=== PATIENT | female | born 1945 | race Caucasian/White ===

== ENCOUNTER 2021-03-23 07:40 | Outpatient (CLI) | payer MEDICARE, OTHER, SELFPAY ==
--- NOTE | 2021-03-23 07:45 | MM_ITS ---
WS: [id number] Bilateral screening digital mammogram, 03/23/2021 Clinical Data: SCREENING Comparison: 08/21/2019, 07/21/2018, 06/17/2017. Findings: The breast parenchymal pattern shows fat replacement. No spiculated masses or clustered calcification s are seen. There are no secondary signs of carcinoma. MM/[id number] Impression: 1. Negative bilateral mammogram unchanged. 2. Recommend annual screening mammograms. BIRADS: 1-Negative FOLLOW UP: 1 Year Follow-up The CAD weight checker was used.
== END 2021-03-23 07:41 | disposition home or self-care (01) ==
LOC: RADSHAW 07:43
PROVIDERS: PCP Family Medicine; Visit Provider Family Medicine
DX: Z12.31 Encounter for screening mammogram for malignant neoplasm of breast (principal)
CPT/HCPCS: 77067

== ENCOUNTER → 2022-03-22 08:03 | Outpatient (BNVA) | payer MEDICARE, OTHER, SELFPAY | PROVIDERS: PCP Family Medicine; Visit Provider Family Medicine | DX: E78.5 Hyperlipidemia, unspecified (principal) | CPT/HCPCS: 80053; 80061 ==

== ENCOUNTER 2022-05-02 14:27 | Outpatient (CLI) | payer MEDICARE, OTHER, SELFPAY ==
--- NOTE | 2022-05-02 14:41 | MM_ITS ---
WS: [id number] BILATERAL 3D TOMOSYNTHESIS DIGITAL SCREENING MAMMOGRAPHY WITH CAD CLINICAL INFORMATION: SCREENING HISTORY: Screening mammogram. No current complaints. COMPARISON: March 23, 2021 TECHNIQUE: Bilateral CC and MLO views. FINDINGS: Scattered fibroglandular densities bilaterally. A few tiny punctate calcifications. A few tiny calcif ications subareolar RIGHT breast. Slightly spiculated asymmetric density near the 12:00 position LEFT breast at the areola measuring 6 mm is progressed compared to the prior studies. This is best seen o n the MLO view. Recommend spot compression views and ultrasound for further evaluation. RIGHT breast is unchanged and unremarkable. MM/[place] [id number] IMPRESSION: BI-RADS: 0-Incomplete: Need additional imaging evaluation FOLLOW UP: Need Additional Imaging Recommend LEFT breast diagnostic mammography and ultrasound in further evaluat ion.
== END 2022-05-02 14:28 | disposition home or self-care (01) ==
PROVIDERS: PCP Family Medicine; Visit Provider Family Medicine
DX: Z12.31 Encounter for screening mammogram for malignant neoplasm of breast (principal)
CPT/HCPCS: 77063; 77067

== ENCOUNTER 2022-06-14 08:01 | Outpatient (CLI) | payer MEDICARE, OTHER, SELFPAY ==
--- NOTE | 2022-06-14 08:13 | MM_ITS ---
WS: [id number] LEFT 3D TOMOSYNTHESIS DIGITAL MAMMOGRAPHY WITH CAD CLINICAL INFORMATION: ABNORMAL MAMMO COMPARISON: May 02, 2022 TECHNIQUE: 3 views of the left breast were obtained. FINDINGS: Scattered fibroglandular densities of the left breast. Asymmetric density near the 12:00 position LEF T breast at the areola measuring 6 mm. This mostly compresses out on the spot compression views. Ultr asound described below. ULTRASOUND BREAST LEFT TECHNIQUE: Ultrasound left breast focused area of concern. CLINICAL INFORMATION: ABNORMAL MAMMO COMPARISON: None. FINDINGS: Ultrasound LEFT 11 to 1:00 position. Normal underlying parenchymal tissue. No suspicious cystic or so lid lesions. No lesions to target for biopsy. Recommend return to screening mammography. MM/[id number] IMPRESSION: BI-RADS: 2-Benign FOLLOW UP: 1 Year Follow-up Recommend return to annual screening mammography.
== END 2022-06-14 08:02 | disposition home or self-care (01) ==
LOC: RAD 08:01
PROVIDERS: PCP Family Medicine; Visit Provider Family Medicine
DX: R92.8 Other abnormal and inconclusive findings on diagnostic imaging of breast (principal)
CPT/HCPCS: 76642; 77061

== ENCOUNTER → 2023-03-11 15:12 | Outpatient (BNVA) | payer MEDICARE, OTHER, SELFPAY | PROVIDERS: PCP Family Medicine; Visit Provider Dermatology | DX: L21.8 Other seborrheic dermatitis (principal) | CPT/HCPCS: 99214 ==

== ENCOUNTER → 2023-04-01 09:19 | Outpatient (BNVA) | payer MEDICARE, OTHER, SELFPAY | PROVIDERS: PCP Clinical Nurse Specialist Adult Health; Visit Provider Clinical Nurse Specialist Adult Health | DX: Z00.00 Encounter for general adult medical examination without abnormal findings (principal) | CPT/HCPCS: 80053; 80061; 82306; 83735; 85025 ==

== ENCOUNTER 2023-06-24 08:06 | Outpatient (CLI) | payer MEDICARE, OTHER, SELFPAY ==
--- NOTE | 2023-06-24 08:14 | MM_ITS ---
WS: [id number] SCREENING DIGITAL TOMOSYNTHESIS MAMMOGRAM WITH CAD HISTORY: screening mammogram COMPARISON: 06/14/2022 and 03/23/2021 Bilateral CC and MLO with tomosynthesis views submitted. Synthetic mammography reviewed. Computer aid ed detection analyzed. Breast composition: There are scattered areas of fibroglandular density. No suspicious masses, microc alcifications or architectural distortion. IMPRESSION: MM/[place] [id number] BI-RADS: 1-Negative FOLLOW UP: 1 Year Follow-up
== END 2023-06-24 08:07 | disposition home or self-care (01) ==
LOC: RAD 08:06
PROVIDERS: PCP Clinical Nurse Specialist Adult Health; Visit Provider Clinical Nurse Specialist Adult Health
DX: Z12.31 Encounter for screening mammogram for malignant neoplasm of breast (principal)
CPT/HCPCS: 77063; 77067

== ENCOUNTER → 2023-08-07 09:23 | Outpatient (BNVA) | payer MEDICARE, OTHER, SELFPAY | PROVIDERS: PCP Clinical Nurse Specialist Adult Health; Visit Provider Clinical Nurse Specialist Adult Health | DX: E55.9 Vitamin D deficiency, unspecified (principal) | CPT/HCPCS: 82652 ==

== ENCOUNTER → 2024-02-06 08:02 | Outpatient (BNVA) | payer MEDICARE, OTHER, SELFPAY | PROVIDERS: PCP Clinical Nurse Specialist Adult Health; Visit Provider Clinical Nurse Specialist Adult Health | DX: E55.9 Vitamin D deficiency, unspecified (principal) | CPT/HCPCS: 82306 ==

== ENCOUNTER → 2024-03-17 08:45 | Outpatient (BNVA) | payer MEDICARE, OTHER, SELFPAY | PROVIDERS: PCP Clinical Nurse Specialist Adult Health; Visit Provider Nurse Practitioner Family | DX: Z12.83 Encounter for screening for malignant neoplasm of skin (principal); L82.1 Other seborrheic keratosis; D18.01 Hemangioma of skin and subcutaneous tissue; L81.4 Other melanin hyperpigmentation; L57.0 Actinic keratosis; L57.8 Other skin changes due to chronic exposure to nonionizing radiation; L85.3 Xerosis cutis | CPT/HCPCS: 17000; 99213 ==

== ENCOUNTER → 2024-03-30 08:57 | Outpatient (BNVA) | payer MEDICARE, OTHER, SELFPAY | PROVIDERS: PCP Clinical Nurse Specialist Adult Health; Visit Provider Clinical Nurse Specialist Adult Health | DX: Z00.00 Encounter for general adult medical examination without abnormal findings (principal); E55.9 Vitamin D deficiency, unspecified | CPT/HCPCS: 80053; 82306; 85025 ==

== ENCOUNTER → 2024-05-25 08:02 | Outpatient (BNVA) | payer MEDICARE, OTHER, SELFPAY | PROVIDERS: PCP Clinical Nurse Specialist Adult Health; Referring Provider Clinical Nurse Specialist Adult Health; Visit Provider Specialist | DX: R48.2 Apraxia; R51.9 Headache, unspecified; H02.401 Unspecified ptosis of right eyelid | CPT/HCPCS: 36415; 85651; 86140; 99204 ==

== ENCOUNTER 2024-06-25 07:38 | Outpatient (CLI) | payer MEDICARE, OTHER, SELFPAY ==
--- NOTE | 2024-06-25 08:00 | MM_ITS ---
WS: [id number] BILATERAL SCREENING DIGITAL TOMOSYNTHESIS MAMMOGRAM WITH CAD HISTORY: screening COMPARISON: 06/24/2023, 06/14/2022 Bilateral CC and MLO views with tomosynthesis and synthetic mammography submitted. Computer aided det ection analyzed. Breast composition: There are scattered areas of fibroglandular density. No suspicious masses, microc alcifications or architectural distortion. Scattered benign calcifications in each breast. MM/MM scr [place] tomosynthesis [id number] IMPRESSION: BI-RADS: 2 - Benign. FOLLOW UP: 1 Year Follow-up
== END 2024-06-25 07:39 | disposition home or self-care (01) ==
PROVIDERS: PCP Clinical Nurse Specialist Adult Health; Visit Provider Clinical Nurse Specialist Adult Health
DX: Z12.39 Encounter for other screening for malignant neoplasm of breast (principal); Z00.00 Encounter for general adult medical examination without abnormal findings; R92.323 Mammographic fibroglandular density, bilateral breasts; R92.1 Mammographic calcification found on diagnostic imaging of breast
CPT/HCPCS: 77063; 77067; 80053; 82306; 85025

== ENCOUNTER 2024-12-11 09:04 | Outpatient (CLI) | payer MEDICARE, OTHER, SELFPAY ==
--- NOTE | 2024-12-11 09:16 | XR_ITS ---
WS: [id number] Exam: XR hip RT 2-3V wo/w pel* [id number] Date/Time of Exam: 12/11/2024 9:16 AM Reason For Exam: M25.551 - Pain in right hip No fracture. Mild degenerative change of the acetabulum. The joint is relatively well-maintained. Normal soft tissues. XR/XR hip RT 2-3V wo/w pel* [id number] IMPRESSION: 1. Mild DJD.
== END 2024-12-11 09:05 | disposition home or self-care (01) ==
LOC: RAD 09:09
PROVIDERS: PCP Clinical Nurse Specialist Adult Health; Visit Provider Clinical Nurse Specialist Adult Health
DX: M16.11 Unilateral primary osteoarthritis, right hip (principal); M54.30 Sciatica, unspecified side
CPT/HCPCS: 73502

== ENCOUNTER → 2025-03-18 09:32 | Outpatient (BNVA) | payer MEDICARE, OTHER, SELFPAY | PROVIDERS: PCP Clinical Nurse Specialist Adult Health; Visit Provider Nurse Practitioner Family | DX: L70.8 Other acne (principal); L81.0 Postinflammatory hyperpigmentation; L82.1 Other seborrheic keratosis; D28.0 Benign neoplasm of vulva; M71.342 Other bursal cyst, left hand; L57.0 Actinic keratosis | CPT/HCPCS: 17000; 99213 ==

== ENCOUNTER → 2025-04-05 10:42 | Outpatient (BNVA) | payer MEDICARE, OTHER, SELFPAY | PROVIDERS: PCP Clinical Nurse Specialist Adult Health; Visit Provider Clinical Nurse Specialist Adult Health | DX: Z00.00 Encounter for general adult medical examination without abnormal findings (principal); M81.0 Age-related osteoporosis without current pathological fracture; Z12.39 Encounter for other screening for malignant neoplasm of breast | CPT/HCPCS: 80053; 80061; 82306; 85025 ==

== ENCOUNTER 2025-04-12 14:37 | Outpatient (CLI) | payer MEDICARE, OTHER, SELFPAY ==
--- NOTE | 2025-04-12 15:00 | XR_ITS ---
WS: [email or web address] SCREENING DEXA SCAN [place] CLINICAL INFORMATION: M81.0 - Age-related osteoporosis without current patholog... FINDINGS: The L1-L4 bone mineral density measures 1.030 g/cm2. This corresponds to a T score score of -1.2 and Z score of 0.3. Left femoral neck bone mineral density measures 0.818 g/cm2. This corresponds to a T score of -1.5 and Z score of 0.2. Right femoral neck bone mineral density measures 0.794 g/cm2. This corresponds to a T score -1.7of and Z score of 0.1. Mean femoral neck bone mineral density measures 0.806 g/cm2. This corresponds to a T score of -1.6 and Z score of 0.2. XR/XR DEXA axial skeleton* [id number] IMPRESSION: Osteopenia lumbar spine. Osteopenia femoral necks. Patient's FRAX calculated 10 year probability for major osteoporotic fracture i s 18.9% and osteoporotic hip fracture is 6.6%.
== END 2025-04-12 14:38 | disposition home or self-care (01) ==
LOC: RAD 14:39
PROVIDERS: PCP Clinical Nurse Specialist Adult Health; Visit Provider Clinical Nurse Specialist Adult Health
DX: M81.0 Age-related osteoporosis without current pathological fracture (principal); M85.88 Other specified disorders of bone density and structure, other site
CPT/HCPCS: 77080

== ENCOUNTER 2025-06-28 07:36 | Outpatient (CLI) | payer MEDICARE, OTHER, SELFPAY ==
--- NOTE | 2025-06-28 07:42 | MM_ITS ---
WS: [id number] BILATERAL SCREENING DIGITAL TOMOSYNTHESIS MAMMOGRAM WITH CAD HISTORY: SCREENING COMPARISON: 06/25/2024, 06/24/2023 Bilateral CC and MLO views with tomosynthesis and synthetic mammography submitted. Computer aided detection analyzed. Breast composition: There are scattered areas of fibroglandular density. No suspicious masses, microcalcifications or architectural distortion. MM/MM scr [place] tomosynthesis [id number] IMPRESSION: BI-RADS: 1 - Negative. FOLLOW UP: 1 Year Follow-up
== END 2025-06-28 07:37 | disposition home or self-care (01) ==
LOC: RAD 07:37
PROVIDERS: PCP Clinical Nurse Specialist Adult Health; Visit Provider Clinical Nurse Specialist Adult Health
DX: Z12.31 Encounter for screening mammogram for malignant neoplasm of breast (principal); R92.323 Mammographic fibroglandular density, bilateral breasts
CPT/HCPCS: 77063; 77067